=== PATIENT | female | born 1980 | race American Indian/Alaskan Native ===

== ENCOUNTER → 2025-07-15 | Outpatient (REF) | payer MEDICAID ==
[~2025-07-15] MED LIST: AMIT25TA19; CYCL-707; KETO-204 PO; PRED20TA PO; PROM25TA12 PO
[2025-07-15 14:09] LABS: APPEARANCE, URINE CLEAR (CLEAR); BACTERIA, URINE AUTO NEGATIVE (NEGATIVE); BILIRUBIN, URINE AUTO NEGATIVE (NEGATIVE); BLOOD, URINE BLOOD 1+ (NEGATIVE); GLUCOSE, URINE (UA) AUTO NEGATIVE (NEGATIVE); KETONE, URINE AUTO NEGATIVE (NEGATIVE); LEUKOCYTE ESTERASE, URINE AUTO NEGATIVE (NEGATIVE); MUCUS, URINE SMALL (NEGATIVE); NITRITE, URINE AUTO NEGATIVE (NEGATIVE); PROTEIN, URINE AUTO NEGATIVE (NEGATIVE); RBC, URINE AUTO 3 /HPF (0-3); SPECIFIC GRAVITY URINE AUTO 1.009 (1.002-1.035); SQUAMOUS EPITHELIAL CELL UR AU 1 /HPF (0-6); UROBILINOGEN, URINE AUTO 0.2 mg/dL (0.0-2.0); WBC, URINE AUTO 1 /HPF (0-3)
== END ==
LOC: M LAB REF 12:35
PROVIDERS: ATTEND Physician Assistant Medical
DX: N39.0 Urinary tract infection, site not specified (principal)

== ENCOUNTER 2025-07-17 11:49 | Emergency (ER) | payer MEDICAID ==
[~2025-07-17] VITALS: Ht 152.4 cm; Wt 65.0 kg
[2025-07-17 11:59] VITALS: TEMP 98.3
[2025-07-17] MEDS ORDERED: AMIT25TA19 (12:06)
[2025-07-17] MEDS ORDERED: CYCL-707 (12:06)
[2025-07-17 12:41] LABS: BASO # 0.0 10^3/uL (0.0-0.2); BASO % 0.7 % (0.0-1.0); EOS # 0.1 10^3/uL (0.0-0.5); EOS % 0.9 % (0.0-3.0); LYMPH # 2.2 10^3/uL (1.5-5.0); LYMPH % 39.0 % (24.0-44.0); MONO # 0.5 10^3/uL (0.0-0.8); MONO % 9.4 % (2.0-8.0); NEUTROPHILS # 2.8 10^3/uL (1.5-8.5); NEUTROPHILS % 49.8 % (36.0-66.0); PLATELET COUNT, AUTOMATED 317 10^3/uL (150-450)
[2025-07-17 12:44] LABS: KETONE, URINE AUTO RFX NEGATIVE (NEGATIVE); LEUKOCYTE ESTERASE UR AUTO RFX NEGATIVE (NEGATIVE); NITRITE, URINE AUTO RFX NEGATIVE (NEGATIVE); RBC, URINE AUTO RFX 1 /HPF (0-3); SQUAM EPITHELIAL CELL UR AURFX 3 /HPF (0-6); WBC, URINE AUTO RFX 2 /HPF (0-3)
[2025-07-17 13:03] LABS: HCG, SERUM QUALITATIVE NEGATIVE (NEGATIVE)
[2025-07-17] MEDS: ONDANSETRON 4MG/2ML VIAL IV ONE (13:04)
[2025-07-17 13:05] LABS: ALT/SGPT 25 U/L (7.0-40); AST/SGOT 24 U/L (<34); CALCIUM LEVEL 9.6 MG/DL (8.5-10.1); CARBON DIOXIDE LEVEL 30 MMOL/L (20-31); CHLORIDE LEVEL 105 MMOL/L (98-107); CREATININE FOR GFR 0.67 MG/DL (0.55-1.30); GLOMERULAR FILTRATION RATE > 90.0 (>58); POTASSIUM SERUM 4.0 MMOL/L (3.5-5.1); SODIUM LEVEL 140 MMOL/L (136-145)
[2025-07-17] MEDS: KETOROLAC 30 MG/ML 1 ML VIAL IV ONE (13:05)
[2025-07-17 14:00] VITALS: BP 128/69; O2SAT 99
[2025-07-17] MEDS ORDERED: KETO-204 PO (14:07)
[2025-07-17] MEDS ORDERED: PRED20TA PO (14:07)
[2025-07-17] MEDS ORDERED: PROM25TA12 PO (14:07)
== END 2025-07-17 14:19 | disposition home or self-care (01) ==
LOC: EDBD 11:49 → M ED 11:49
DX: R10.9 Unspecified abdominal pain (principal); M79.7 Fibromyalgia; Z88.6 Allergy status to analgesic agent; Z88.1 Allergy status to other antibiotic agents; Z88.5 Allergy status to narcotic agent; Z88.8 Allergy status to other drugs, medicaments and biological substances
CPT/HCPCS: 36415; 74176; 80053; 81001; 83605; 83690; 84703; 85025; 96374; 96375; 99284; J1885; J2405

== ENCOUNTER 2025-07-19 12:08 | Emergency (ER) | payer MEDICAID ==
[~2025-07-19] VITALS: Ht 152.4 cm; Wt 65.0 kg
[2025-07-19 15:49] LABS: BASO # 0.0 10^3/uL (0.0-0.2); BASO % 0.4 % (0.0-1.0); EOS # 0.0 10^3/uL (0.0-0.5); EOS % 0.0 % (0.0-3.0); LYMPH # 0.9 10^3/uL (1.5-5.0); LYMPH % 12.0 % (24.0-44.0); MONO # 0.2 10^3/uL (0.0-0.8); MONO % 2.0 % (2.0-8.0); NEUTROPHILS # 6.5 10^3/uL (1.5-8.5); NEUTROPHILS % 85.3 % (36.0-66.0); PLATELET COUNT, AUTOMATED 296 10^3/uL (150-450)
[2025-07-19 16:01] LABS: KETONE, URINE AUTO RFX NEGATIVE (NEGATIVE); LEUKOCYTE ESTERASE UR AUTO RFX NEGATIVE (NEGATIVE); NITRITE, URINE AUTO RFX NEGATIVE (NEGATIVE); RBC, URINE AUTO RFX 8 /HPF (0-3); SQUAM EPITHELIAL CELL UR AURFX 2 /HPF (0-6); WBC, URINE AUTO RFX 1 /HPF (0-3)
[2025-07-19 16:12] LABS: ALT/SGPT 24 U/L (7.0-40); AST/SGOT 25 U/L (<34); CALCIUM LEVEL 9.5 MG/DL (8.5-10.1); CARBON DIOXIDE LEVEL 28 MMOL/L (20-31); CHLORIDE LEVEL 107 MMOL/L (98-107); CREATININE FOR GFR 0.66 MG/DL (0.55-1.30); GLOMERULAR FILTRATION RATE > 90.0 (>58); POTASSIUM SERUM 4.8 MMOL/L (3.5-5.1); SODIUM LEVEL 141 MMOL/L (136-145)
[2025-07-19] MEDS ORDERED: PERC5TAB12 PO (16:39)
[2025-07-19] MEDS: PERCOCET 5MG/325MG TAB PO ONE (16:50)
[2025-07-19 16:55] VITALS: BP 146/68; TEMP 98.2; O2SAT 100
== END 2025-07-19 17:17 | disposition home or self-care (01) ==
LOC: M ED 12:08
DX: N30.10 Interstitial cystitis (chronic) without hematuria (principal); R51.9 Headache, unspecified; K58.9 Irritable bowel syndrome, unspecified; Z88.1 Allergy status to other antibiotic agents; Z88.5 Allergy status to narcotic agent; Z88.8 Allergy status to other drugs, medicaments and biological substances

== ENCOUNTER → 2025-08-28 | Outpatient (REF) | payer MEDICAID ==
[~2025-08-28] MED LIST changes: +PERC5TAB12 PO
[2025-08-28 17:23] LABS: CHOLESTEROL LEVEL 218.0 MG/DL (<200); CHOLESTEROL RISK RATIO 2.26 (<5); LDL CHOLESTEROL 104.2 MG/DL (<100); NON-HDL-C 121.8 MG/DL; TRIGLYCERIDES LEVEL 88.0 MG/DL (<150)
[2025-08-28 18:24] LABS: ESTIMATED AVERAGE GLUCOSE 108.0 MG/DL (60-110)
== END ==
LOC: M LAB REF 16:24
PROVIDERS: ATTEND Student in an Organized Health Care Education/Training Program
DX: E66.9 Obesity, unspecified (principal)